=== PATIENT | female | born 1995 | race Caucasian/White ===

== ENCOUNTER 2021-12-08 19:45 | Emergency (ER) | payer OTHER | END 2021-12-08 21:45 | disposition home or self-care (01) | LOC: FER 19:45 | DX: S63.601A Unspecified sprain of right thumb, initial encounter (principal); V49.50XA Passenger injured in collision with unspecified motor vehicles in traffic accident, initial encounter; Z28.310 Unvaccinated for COVID-19 | CPT/HCPCS: 73130 ==